=== PATIENT | female | born 1960 | race Caucasian/White ===

== ENCOUNTER → 2018-08-11 | Outpatient (CLI) | payer OTHER ==
--- NOTE | 2018-08-11 14:38 | RAD ---
CT of the chest without contrast, 08/11/2018: HISTORY: Shortness of breath, sarcoidosis Noncontrast scans were obtained as requested and compared to a study from 12/28/2007. The thoracic aorta is of normal caliber. A small coronary artery calcification is noted. Several small mediastinal lymph nodes are seen without evidence of pathologic enlargement. There is a calcified node at the right hilum. There are unchanged linear opacities in the inferior lingula with calcifications. The appearance is that of scarring. It may be postsurgical. Correlation with the patient's surgical history is suggested. There is a tiny 3 mm nodule in the right upper lobe adjacent to the minor fissure. It is unchanged compatible with a benign etiology such as a granuloma or scar. The lungs are otherwise clear. No pulmonary infiltrate or mass is seen. There is no evidence of pleural fluid. IMPRESSION: 1. Mild lingular scarring. 2. No acute chest abnormality is detected. PQRS Compliance Statement: One or more of the following individualized dose reduction techniques were utilized for this examination: 1. Automated exposure control 2. Adjustment of the mA and/or kV according to patient size 3. Use of iterative reconstruction technique Electronically signed by: Molina Reeys MD (08/11/2018 2:35 PM) [facility]
== END | disposition home or self-care (01) ==
LOC: CT 11:23
PROVIDERS: ATTEND Internal Medicine Pulmonary Disease
DX: L90.5 Scar conditions and fibrosis of skin (principal)
CPT/HCPCS: 71250

== ENCOUNTER → 2018-09-12 | Outpatient (CLI) | payer OTHER, MEDICAID ==
--- NOTE | 2018-09-13 16:07 | SLEEP ---
DATE OF STUDY: 09/12/2018 ATTENDING PHYSICIAN: Dr. Kam Gordon. This patient is 58 years old who weighs 330 pounds with a BMI of 42. The patient's [place] score was 16. The patient underwent a sleep study at [facility]. This was a split night study. During the night study, the patient spent 425 minutes in bed and slept for 371 minutes with a sleep efficiency of 87%. Sleep latency was 6 minutes with a REM latency of 71 minutes. Overall, sleep architecture showed normal stage I and stage 2 sleep, increased slow wave sleep, which was 39% of the total sleep time and normal REM sleep. During the initial diagnostic portion of the study, the patient slept for 109 minutes. During that time, the patient had 5 obstructive apneas, no mixed or central apneas and 39 hypopneas. The patient's apnea hypopnea index was 24 per hour, supine index 29 per hour and the REM index of 59 per hour. EKG monitoring revealed normal sinus rhythm, average heart rate was 60 beats per minute. No arrhythmias observed. Nocturnal oximetry study during the diagnostic portion showed a mean oxygen saturation of 94%, with lowest of 74%. 13% of time oxygen saturation remained between 80% and 89%. PLMS were not seen. The patient met the criteria for CPAP initiation, was started at 5 cm water and titrated up to 9 cm water. At the final pressure, the patient slept for 50 minutes. The patient had supine sleep throughout and REM sleep was also observed. The patient's AHI was reduced to 0 per hour and, oxygen saturation remained above 88%. The patient used small size nasal pillows. IMPRESSION: 1. Moderate sleep apnea-hypopnea syndrome with worsening during REM sleep. Total AHI 24 per hour with a REM AHI of 59 per hour. 2. Nocturnal hypoxia secondary to obstructive sleep apnea, but resolved with CPAP. 3. No clinically significant PLMS. RECOMMENDATIONS: 1. CPAP at 9 cm water completely eliminated the patient's sleep apnea, should be used on a nightly basis. 2. Follow up in 4-6 weeks to assess compliance with CPAP and to document clinical improvement. 3. Weight loss is strongly advised. 4. Avoid [employer] LENS depressants. 5. Caution regarding driving until symptoms of sleep apnea resolve with the use of CPAP. MERLE STILES MD DR: MARIO/kaya JOB#: [id number] / [id number] KAM Norris
== END | disposition home or self-care (01) ==
LOC: SLPLAB 18:04
PROVIDERS: ATTEND Internal Medicine Pulmonary Disease
DX: G47.33 Obstructive sleep apnea (adult) (pediatric) (principal); G47.34 Idiopathic sleep related nonobstructive alveolar hypoventilation
CPT/HCPCS: 95810

== ENCOUNTER → 2019-03-01 | Outpatient (CLI) | payer OTHER, MEDICAID ==
[~2019-03-01] MED LIST: REGADENOSON 0.4 MG/5 ML DISP.SYRIN. IV ONE
--- NOTE | 2019-03-01 13:58 | RAD ---
MR#: [id number] Date of Study: 03/01/2019 Ordering Physician: RACHANA SMITH Referring Physician: TIANA MCLEOD Tech: Junie Smallwood RT (R) (N) APPROVED REPORT Test Type: Pharmacological Stress Nurse/Tech: Donna Pierre RN Test Indications: heartburn, family history Cardiac History: HTN Medications: See Electronic Medical Record Medical History: See Electronic Medical Record Resting ECG: SR Resting Heart Rate: 51 bpm Resting Blood Pressure: 138/77mmHg Pretest Chest Pain: No chest pain Nurse/Tech Notes Lungs CTA, S1S2 Consent: The procedure was explained to the patient in lay terms. Informed consent was witnessed. Sukhi eout was entered into [employer]. History and Stress Test performed by Donna Pierre RN Pharm. Details Pharmacologic stress testing was performed using 0.4mg per 5ml of regadenoson given intravenously ove r 7-10 seconds. Stress Symptoms Nausea, no chest pain POST EXERCISE Reason for Termination: Infusion complete Max HR: 115 bpm Max Blood Pressure: 141/79mmHg Blood Pressure response to exercise: Normal blood pressure response during stress. Heart Rate response to exercise: normal response Chest Pain: No. Arrhythmia: No. ST Change: No. INTERPRETATION Stress EKG Conclusion: No evidence of stress induced EKG changes. Imaging Protocol IMAGE PROTOCOL: Stress Tc-99m/rest Tc-99m 2 days Rest: Stress: Viability: Radiopharm.Tc99m Sestamibi [id number] Duration 16min. Img Date 03/01/2019 Inj-Img [id number]. Stress Admin Site: IV - Right AntecubitalAdministrator: Albino Espinosa, (R)(N) STRESS DATA End Diast. Vol.79.0mlAv. Heart Rate60.0bpm LVEDV index BSA41.0mlCardiac Output1.8L/min End Syst. Vol.21.0mlCO Index BSA3.5L/min LVESV index BSA11.0mlMyocardial Hpfa438.0g Eject. Zgrnhpoi87.0% Stress Scores Regional WT0.00Summed WT10.00 Regional WM0.00Summed WM0.00 LV Perfusion Normal perfusion at stress. Wall Motion Normal EF > 70% LV Perf. Quant 17 Seg. SSS0.00 Stress Defect Extent (% LAD)0.00Rest Defect Extent (% LAD)Rev. Defect Extent (% LAD)0.00 Stress Defect Extent (% LCX) 5.00Rest Defect Extent (% LCX)Rev. Defect Extent (% LCX)0.00 Stress Defect Extent (% RCA)0.00Rest Defect Extent (% RCA)Rev. Defect Extent (% RCA)0.00 Stress Defect Extent (% JW)2.00Rest Defect Extent (% JW)Rev. Defect Extent (% JW)0.00 Other Information Quality:Good Risk Assessment: Low Risk Conclusion 1. No evidence of stress induced EKG changes. 2. Normal perfusion at stress. 3. Normal EF at > 70% 4. Low risk study Signed by : Antonio Spence, Electronically Approved : 03/01/2019 13:57:40
== END | disposition home or self-care (01) ==
LOC: NM 15:10
PROVIDERS: ATTEND Internal Medicine Cardiovascular Disease
DX: R06.09 Other forms of dyspnea (principal); I10 Essential (primary) hypertension
CPT/HCPCS: 78452; 93017; A9500; J2785

== ENCOUNTER → 2019-03-01 | Outpatient (CLI) | payer OTHER, MEDICAID ==
--- NOTE | 2019-03-01 13:05 | CARD ---
MR#: [id number] Date of Study: 03/01/2019 Ordering Physician: RACHANA SMITH, Referring Physician: RACHANA SMITH Tech: Dolly Thorpe RDCS APPROVED REPORT EXAM: Two-dimensional and M-mode echocardiogram with Doppler and color Doppler. Other Information Quality : Fair Technically limited study due to breast size INDICATION Exertional Dyspnea 2D DIMENSIONS RVDd2.8 (2.9-3.5cm)Left Atrium(2D)3.3 (1.6-4.0cm) IVSd1.1 (0.7-1.1cm)Aortic Root(2D)3.1 (2.0-3.7cm) LVDd3.8 (3.9-5.9cm)LVOT Diameter2.0 (1.8-2.4cm) PWd1.0 (0.7-1.1cm)LVDs2.7 (2.5-4.0cm) FS (%) 29.7 %SV35.0 ml LVEF(%)57.5 (>50%) Aortic Valve AoV Peak Alejandro.155.0cm/sAoV VTI30.0cm AO Peak GR.9.6mmHgLVOT Peak Alejandro.149.6cm/s AO Mean GR.5mmHgAVA (VMAX)2.94cm2 CARLOS (VTI)3.10cm2 Mitral Valve MV E Kgmnhdfj20.6cm/sMV DECEL MSTC506ci MV A Cadnuzjf68.3cm/sE/A Ratio0.7 Tricuspid Valve TR P. Bgxcuzsy737zp/sRAP ESLZSGIG6rmVx TR Peak Gr.35baXpETPX14xnDd Pulmonary Vein S1 Qscwxvpt72.8cm/sD2 Qeprblpj36.2cm/s LEFT VENTRICLE The left ventricle is normal size. There is normal left ventricular wall thickness. The left ventricu lar systolic function is normal and the ejection fraction is within normal range. The Ejection Fracti on is 55-60%. There is normal LV segmental wall motion. Transmitral Doppler flow pattern is Grade I-a bnormal relaxation pattern. RIGHT VENTRICLE The right ventricle is normal size. The right ventricular systolic function is normal. ATRIA The left atrium size is normal. The right atrium size is normal. The interatrial septum is intact wit h no evidence for an atrial septal defect or patent foramen ovale as noted on 2-D or Doppler imaging. AORTIC VALVE The aortic valve is calcified but opens well. Doppler and Color Flow revealed trace aortic regurgitat ion. There is no significant aortic valvular stenosis. MITRAL VALVE The mitral valve is normal in structure and function. There is no evidence of mitral valve prolapse. There is no mitral valve stenosis. Doppler and Color Flow revealed no mitral valve regurgitation note d. TRICUSPID VALVE The tricuspid valve is normal in structure and function. Doppler and Color Flow revealed physiologica l tricuspid regurgitation. The PA pressure was estimated at 22 mmHg. There is no tricuspid valve sten osis. PULMONIC VALVE Doppler and Color Flow revealed trace pulmonic valvular regurgitation. There is no pulmonic valvular stenosis. GREAT VESSELS The aortic root is normal in size. The ascending aorta is mildly dilated at 3.5 cm. The IVC is normal in size and collapses >50% with inspiration. PERICARDIAL EFFUSION There is no evidence of significant pericardial effusion. Critical Notification Critical Value: No <Conclusion> The left ventricular systolic function is normal and the ejection fraction is within normal range. Th e Ejection Fraction is 55-60%. There is normal LV segmental wall motion. Signed by : Antonio Spence, Electronically Approved : 03/01/2019 13:04:56
== END | disposition home or self-care (01) ==
LOC: ECHO 11:51
PROVIDERS: ATTEND Internal Medicine Cardiovascular Disease
DX: I08.2 Rheumatic disorders of both aortic and tricuspid valves (principal)
CPT/HCPCS: 93306